=== PATIENT | male | born 1995 ===

== ENCOUNTER 2021-06-25 23:32 | Emergency (ER) | payer MEDICAID ==
[~2021-06-25] VITALS: Ht 177.8 cm; Wt 78.0 kg
[2021-06-26] MEDS ORDERED: FAMOTIDINE 20MG/2ML VIAL IV STA (01:16)
[2021-06-26] MEDS ORDERED: ONDANSETRON HCL 4MG/2ML INJ IV STA (01:16)
[2021-06-26] MEDS ORDERED: MORPHINE SULFATE 4 MG/ML CPJ (NOT FOR IM USE) IV STA (01:16)
[2021-06-26] MEDS ORDERED: SODIUM CHLORIDE 0.9% 1,000 ML IV ONE ×2 (01:30→02:30)
[2021-06-26 01:42] LABS: HEMATOCRIT. 45.4 % (42.0-52.0); MEAN CORPUSCULAR HEMOGLOBIN 28.9 pg (28.0-32.0); MEAN CORPUSCULAR VOLUME 87.4 fL (80.0-94.0); MEAN PLATELET VOLUME 7.4 fl (7.4-10.4); PLATELET 250 x1000/uL (130-400); RED CELL DISTRIBUTION WIDTH 14.3 % (11.6-14.6)
[2021-06-26 01:48] LABS: CHLORIDE 104 mEq/L (98-107)
[2021-06-26 03:37] LABS: CLARITY URINE CLEAR (CLEAR); COLOR URINE YELLOW (YELLOW); KETONES URINE TRACE (NEGATIVE); LEUKOCYTE ESTERASE URINE NEGATIVE (NEGATIVE); NITRITE URINE NEGATIVE (NEGATIVE); OCCULT BLOOD URINE NEGATIVE (NEGATIVE); PROTEIN URINE 1+ (NEGATIVE)
[2021-06-26 05:30] LABS: PLATELET ESTIMATE NORMAL
[2021-06-26] MEDS ORDERED: ONDA4TAB5 MT (05:41)
[2021-06-26] MEDS ORDERED: PANT40SU MT (05:41)
[2021-06-26 06:00] VITALS: BP 131/88
[2021-06-26] MEDS ORDERED: METOCLOPRAMIDE HCL 10MG/2ML VIAL IV ONE (06:00)
== END 2021-06-26 06:41 | disposition home or self-care (01) ==
LOC: ER 23:32
DX: K29.70 Gastritis, unspecified, without bleeding (principal); Z79.899 Other long term (current) drug therapy; E86.0 Dehydration
CPT/HCPCS: 36415; 74176; 80053; 81003; 83605; 83690; 85025; 96361; 96374; 96375; 99284; J2270; J2405; J2765; J3490; J7030